=== PATIENT | female | born 1985 | race Caucasian/White ===

== ENCOUNTER 2020-08-11 18:35 | Emergency (ER) | payer OTHER ==
[~2020-08-11] VITALS: Ht 154.9 cm; Wt 81.7 kg
[2020-08-11] MEDS ORDERED: DESYREL150 MG PO (18:51)
[2020-08-11] MEDS ORDERED: SEROQUEL XR150 MG PO (18:51)
[2020-08-11] MEDS ORDERED: FLUOXETINE HCL60 MG PO (18:51)
[2020-08-11] MEDS ORDERED: GABAPENTIN800 M1 PO (18:51)
[2020-08-11] MEDS ORDERED: QUETIAPINE FUM100 MG PO (18:51)
[2020-08-11 19:07] LABS: URINE BILIRUBIN NEGATIVE (Negative); URINE BLOOD TRACE (Negative); URINE CLARITY CLEAR; URINE COLOR YELLOW; URINE GLUCOSE-RANDOM NEGATIVE (Negative); URINE KETONES NEGATIVE (Negative); URINE LEUKOCYTES-REFLEX NEGATIVE (Negative); URINE NITRITE-REFLEX NEGATIVE (Negative); URINE PROTEIN TRACE (Negative); URINE SPECIFIC GRAVITY >= 1.030 (1.005-1.030); URINE UROBILINOGEN 0.2 E.U./dl (0.2-1.0)
[2020-08-11 19:17] LABS: AMP/METHAMP POSITIVE (Negative); BARBITURATES Negative (Negative); BENZODIAZEPINES POSITIVE (Negative); COCAINE Negative (Negative); METHADONE Negative (Negative); OPIATES Negative (Negative); PCP POSITIVE (Negative); THC POSITIVE (Negative)
[2020-08-11] MEDS ORDERED: NAPROSYN500 M1 PO (19:42)
[2020-08-11 19:58] VITALS: BP 120/68
== END 2020-08-11 19:59 | disposition home or self-care (01) ==
LOC: M.ERS 18:35
PROVIDERS: Nurse Practitioner Psychiatric/Mental Health
DX: M54.5 Low back pain (principal); F19.10 Other psychoactive substance abuse, uncomplicated; Z76.5 Malingerer [conscious simulation]; M19.90 Unspecified osteoarthritis, unspecified site; M32.9 Systemic lupus erythematosus, unspecified; F17.210 Nicotine dependence, cigarettes, uncomplicated; Z79.899 Other long term (current) drug therapy